=== PATIENT | male | born 2000 ===

== ENCOUNTER 2020-12-25 10:32 | Outpatient (CLI) | payer SELFPAY ==
--- NOTE | ~2020-12-25 | CT_ITS ---
EXAMINATION: CT diagnostic chest wo con EXAM DATE: 12/25/2020 10:57 INDICATION: Chest pain. TECHNIQUE: Spiral CT of the chest without contrast. Axial, coronal and sagittal images of the chest were reviewed. Coronal maximum intensity pixel images of chest reviewed. The dose-length product ( DLP) for this examination was 185.17 mGy-cm. The exposure was tailored according to patient size (au to mA exposure control), and iterative reconstruction (ASIR) was used as additional dose reduction [place]. There is no prior study for comparison. FINDINGS: The lungs are clear. There are no pleural or pericardial effusions. Tracheobronchial t ree is patent. There is no mediastinal, hilar or axillary lymphadenopathy. There is no pneumothor ax. Heart normal in size. No evidence of coronary arterial calcification. Upper abdomen is unrem arkable. There is thoracic spondylosis without osteoblastic or osteolytic lesions identified. IMPRESSION: Unremarkable CT chest examination. Reviewed, dictated and finalized at location B.
== END 2020-12-25 10:33 ==
DX: R07.9 Chest pain, unspecified (principal)
CPT/HCPCS: 71250